=== PATIENT | female | born 1975 | race Caucasian/White ===

== ENCOUNTER 2016-05-14 08:35 | Emergency (ER) | payer MEDICAID ==
[~2016-05-14 08:35] MED LIST: APAP/HYDROCODON1 T13 PO; CIPROFLOXACIN250 M2 PO; COL100 PO; FER300 PO; FLA250 PO; LAC PO; LIPI10 PO; THERAGRAN-M1 TA4 PO; VITC PO
[2016-05-14 08:51] VITALS: BP 154/80
== END 2016-05-14 10:46 | disposition home or self-care (01) ==
LOC: ED 08:35
DX: D17.0 Benign lipomatous neoplasm of skin and subcutaneous tissue of head, face and neck (principal); F41.9 Anxiety disorder, unspecified; M54.6 Pain in thoracic spine; E78.00 Pure hypercholesterolemia, unspecified; E11.9 Type 2 diabetes mellitus without complications

== ENCOUNTER 2016-05-19 18:32 | Emergency (ER) | payer MEDICAID ==
[2016-05-19 20:07] LABS: BASOPHIL % 0.4 % (0-2); PLATELET COUNT 393 x10^3mcL (130-400)
[2016-05-19 20:18] LABS: RED CELL DISTRIBUTION WIDTH 16.6 % (11.5-14.5)
[2016-05-19 20:37] LABS: CALCIUM 9.1 mg/dL (8.5-10.1); CARBON DIOXIDE 26.7 mmol/L (21-32); CHLORIDE SERUM 102 mmol/L (98-107); GFR1 > 60 mL/min; GLUCOSE SERUM 112 mg/dL (74-106); POTASSIUM SERUM 3.6 mmol/L (3.5-5.1); SODIUM SERUM 138 mmol/L (136-145)
[2016-05-19 20:41] LABS: ALBUMIN 3.4 g/dL (3.4-5.0); ALKALINE PHOSPHATASE 82 U/L (46-116); ALT/SGPT 31 U/L (14-59); AST/SGOT 17 U/L (15-37); BILIRUBIN TOTAL 0.4 mg/dL (0.20-1.00)
[2016-05-19 22:00] VITALS: BP 144/93
== END 2016-05-19 22:00 | disposition home or self-care (01) ==
LOC: ED 18:32
PROVIDERS: Emergency Medicine
DX: M54.9 Dorsalgia, unspecified (principal); E78.00 Pure hypercholesterolemia, unspecified; E11.9 Type 2 diabetes mellitus without complications; R06.00 Dyspnea, unspecified; Z79.84 Long term (current) use of oral hypoglycemic drugs
CPT/HCPCS: J1885

== ENCOUNTER 2016-09-01 10:51 | Emergency (ER) | payer MEDICAID ==
[~2016-09-01] VITALS: Ht 160 cm; Wt 117.9 kg
[2016-09-01 11:48] VITALS: BP 146/85
== END 2016-09-01 11:48 | disposition home or self-care (01) ==
LOC: ED 10:51
DX: J02.9 Acute pharyngitis, unspecified (principal); R03.0 Elevated blood-pressure reading, without diagnosis of hypertension; E11.9 Type 2 diabetes mellitus without complications; Z79.84 Long term (current) use of oral hypoglycemic drugs
CPT/HCPCS: J0690